=== PATIENT | female | born 1960 | race African-American/Black ===

== ENCOUNTER 2016-08-11 09:42 | Outpatient (CLI) | payer OTHER | END 2016-08-11 09:43 | LOC: POD 09:42 | PROVIDERS: ATTEND Podiatrist Public Medicine | DX: M67.472 Ganglion, left ankle and foot (principal); M79.671 Pain in right foot; M79.672 Pain in left foot | CPT/HCPCS: 99213 ==

== ENCOUNTER 2017-01-18 14:07 | Outpatient (CLI) | payer OTHER | END 2017-01-18 14:12 | disposition home or self-care (01) | LOC: POD 14:07 | PROVIDERS: ATTEND Podiatrist | DX: M67.40 Ganglion, unspecified site (principal) | CPT/HCPCS: 99203 ==